=== PATIENT | female | born 1950 | race African-American/Black ===

== ENCOUNTER 2024-12-02 10:31 | Inpatient (IN) | payer OTHER, MEDICARE ==
[~2024-12-02] VITALS: Ht 160 cm; Wt 75.3 kg
[2024-12-02] MEDS: PIPERACILLIN/TAZO 3.375G/50ML 50 ML IV ONE (11:06)
[2024-12-02] MEDS: SODIUM CHLORIDE 0.9% (SEPSIS BOLUS) IV ONE (11:06)
[2024-12-02 11:27] LABS: BASOPHILS % 0.1 % (0.0-2.0); CARBON DIOXIDE 19 mEq/L (21-32); CHLORIDE 111 mEq/L (98-107); DIFFERENTIAL COMMENT 0; HEMATOCRIT. 59.7 % (36.0-48.0); HEMOGLOBIN. 18.1 g/dL (12.0-16.0); LYMPHOCYTES % 10.8 % (20.0-50.0); MEAN CORPUSCULAR HGB CONC 30.3 g/dL (31.0-37.0); MEAN PLATELET VOLUME 11.2 fl (7.4-10.4); MONOCYTES % 8.1 % (2.0-8.0); PLATELET 155 x1000/uL (130-400); POTASSIUM 4.2 mEq/L (3.5-5.1); RED BLOOD CELL COUNT 6.71 mill/uL (4.2-5.4); RED CELL DISTRIBUTION WIDTH 16.9 % (11.6-14.6); SODIUM 153 mEq/L (136-145); WHITE BLOOD COUNT 7.8 x1000/uL (4.5-11.0)
[2024-12-02 11:32] LABS: INR 1.1
[2024-12-02 11:33] LABS: CREATININE 2.7 mg/dL (0.6-1.0)
[2024-12-02 11:34] LABS: ALANINE AMINOTRANSFERASE 8 IU/L (10-49); TROPONIN I HIGH SENSITIVITY 34 ng/L (3.0-34)
[2024-12-02 11:35] LABS: ALBUMIN 4.1 g/dL (3.2-4.8); BILIRUBIN DIRECT 0.2 mg/dL (<=3.0); BILIRUBIN TOTAL 0.6 mg/dL (0.1-1.0); CREATINE KINASE 47 IU/L (34-145); PROTEIN TOTAL 7.2 g/dL (6.0-8.3)
[2024-12-02 11:47] LABS: ASPARTATE AMINOTRANSFERASE < 8 IU/L (<34)
[2024-12-02 11:48] LABS: GLUCOSE 861 mg/dL (70-105); UREA NITROGEN BLOOD 105 mg/dL (9-23)
[2024-12-02 11:49] LABS: LACTIC ACID 3.9 mmol/L (0.4-2.0)
[2024-12-02 12:42] LABS: BG BASE EXCESS -8.3 mmol/L (-2.0-3.0); BG CARBOXYHEMOGLOBIN 0.2 % (0.5-1.5); BG DEOXYHEMOGLOBIN 2.8 % (0.0-5.0); BG FRACTION INSPIRED OXYGEN 21; BG HCO3 ACT 16.9 mmol/L (21.0-28.0); BG METHEMOGLOBIN 0.1 % (0.5-1.5); BG OXYGEN SATURATION 97.2 % (94.0-98.0); BG OXYHEMOGLOBIN 96.9 % (94.0-98.0); BG PCO2 35.1 mmHg (32.0-45.0); BG PH 7.301 (7.350-7.450); BG PO2 101.1 mmHg (83.0-108.0); BG SAMPLE SITE RIGHT RADIAL; BG TOTAL HEMOGLOBIN 18.4 g/dL (12.0-16.0); BG VENT MODE ROOM AIR
[2024-12-02] MEDS ORDERED: BLOOD SUGAR DIAGNOSTIC STRIP TEST PRN (12:45)
[2024-12-02] MEDS ORDERED: DEXTROSE 50% WATER 50ML SYRINGE IV PRN (12:45)
[2024-12-02] MEDS ORDERED: MAGNESIUM 2 G PREMIX 50 ML IV PRN (12:45)
[2024-12-02] MEDS ORDERED: INSULIN REGULAR (DRIP) 100 UNITS in SODIUM CHLORIDE 0.9% 99 ML IV SCH (13:30)
[2024-12-02] MEDS: BLOOD SUGAR DIAGNOSTIC STRIP TEST SCH (13:40)
[2024-12-02] MEDS: VANCOMYCIN 1G PREMIX 200 ML IV NR (13:45)
[2024-12-02] MEDS: VANCOMYCIN 1G PREMIX 200 ML IV ONE (13:47)
[2024-12-02 14:29] LABS: CHLORIDE 120 mEq/L (98-107); POTASSIUM 3.5 mEq/L (3.5-5.1)
[2024-12-02] MEDS: INSULIN REGULAR 100U/100ML PMX 100 ML IV PRN (14:41)
[2024-12-02 14:43] LABS: CALCIUM 9.5 mg/dL (8.7-10.4); CARBON DIOXIDE 16 mEq/L (21-32)
[2024-12-02] MEDS: SODIUM CHLORIDE 0.9% 1,000 ML IV SCH (14:44)
[2024-12-02 14:48] LABS: CREATININE 2.2 mg/dL (0.6-1.0)
[2024-12-02 14:50] LABS: PHOSPHORUS 5.2 mg/dL (2.5-4.9)
[2024-12-02 14:51] LABS: UREA NITROGEN BLOOD 110 mg/dL (9-23)
[2024-12-02 14:55] LABS: GLUCOSE 795 mg/dL (70-105); SODIUM 158 mEq/L (136-145)
[2024-12-02 20:41] LABS: CHLORIDE 126 mEq/L (98-107)
[2024-12-02 20:42] LABS: CARBON DIOXIDE 23 mEq/L (21-32)
[2024-12-02 20:49] LABS: PHOSPHORUS 2.2 mg/dL (2.5-4.9)
[2024-12-02 20:55] LABS: SODIUM 165 mEq/L (136-145)
[2024-12-02 20:56] LABS: GLUCOSE 467 mg/dL (70-105); POTASSIUM 2.5 mEq/L (3.5-5.1)
[2024-12-02 20:57] LABS: UREA NITROGEN BLOOD 102 mg/dL (9-23)
[2024-12-02 21:17] LABS: CLARITY URINE CLEAR (CLEAR); COLOR URINE YELLOW (YELLOW); GLUCOSE URINE 3+ (NEGATIVE); KETONES URINE TRACE (NEGATIVE); LEUKOCYTE ESTERASE URINE NEGATIVE (NEGATIVE); NITRITE URINE NEGATIVE (NEGATIVE); OCCULT BLOOD URINE NEGATIVE (NEGATIVE); PROTEIN URINE NEGATIVE (NEGATIVE); SPECIFIC GRAVITY URINE 1.028 (1.005-1.030); UROBILINOGEN URINE 0.2 E.U./dL (0.2-1.0)
[2024-12-02] MEDS: SODIUM CHLORIDE 0.45% 1,000 ML IV SCH (21:30)
[2024-12-02] MEDS: KCL 20MEQ/100ML PREMIX 100 ML IV PRN (21:44)
[2024-12-02 22:08] LABS: BACTERIA URINE 1+; SQUAMOUS EPITHELIAL CELL URINE 1+ /lpf (RARE/1+)
[2024-12-02 22:09] LABS: RBC URINE 0-2 /hpf (0-2); WBC URINE 0-2 /hpf (0-2)
[2024-12-02] MEDS: DEXT 5%/0.45% NACL 1000ML 1,000 ML IV SCH (22:30)
[2024-12-02] MEDS: DEXT 5%/0.9% NACL 1,000 ML IV SCH (22:40)
[2024-12-02 22:57] LABS: BASOPHILS % 0.4 % (0.0-2.0); EOSINOPHILS % 0.1 % (0.0-5.0); HEMATOCRIT. 51.7 % (36.0-48.0); HEMOGLOBIN. 16.6 g/dL (12.0-16.0); LYMPHOCYTES % 12.3 % (20.0-50.0); MEAN CORPUSCULAR HEMOGLOBIN 27.5 pg (28.0-32.0); MEAN CORPUSCULAR HGB CONC 32.1 g/dL (31.0-37.0); MEAN CORPUSCULAR VOLUME 85.8 fL (81.0-99.0); MEAN PLATELET VOLUME 10.7 fl (7.4-10.4); MONOCYTES % 3.3 % (2.0-8.0); NEUTROPHILS % 83.9 % (40.0-76.0); PLATELET 134 x1000/uL (130-400); RED BLOOD CELL COUNT 6.02 mill/uL (4.2-5.4); WHITE BLOOD COUNT 9.1 x1000/uL (4.5-11.0)
[2024-12-03] VITALS (21 sets, daily range): BP systolic 127–161; BP diastolic 69–113; PULSE 64–85; RESP 16–27; TEMP 36.2–36.6; O2SAT 98–100
[2024-12-03 00:37] LABS: AMYLASE 125 IU/L (30-118); PHOSPHORUS 1.8 mg/dL (2.5-4.9)
[2024-12-03] MEDS: SODIUM PHOSPHATE 15 MMOL in SODIUM CHLORIDE 0.9% 245 ML IV PRN (01:37)
[2024-12-03] MEDS: DEXT 5%/0.45% NACL 1000ML 1,000 ML IV SCH (02:00)
[2024-12-03] MEDS ORDERED: ONDANSETRON HCL 4MG/2ML INJ IV PRN (02:00)
[2024-12-03 03:17] LABS: ALANINE AMINOTRANSFERASE 9 IU/L (10-49); CREATINE KINASE 131 IU/L (34-145); LACTATE DEHYDROGENASE 316 IU/L (120-246)
[2024-12-03 03:55] LABS: BG BASE EXCESS -5.7 mmol/L (-2.0-3.0); BG CARBOXYHEMOGLOBIN 0.7 % (0.5-1.5); BG DEOXYHEMOGLOBIN 3.5 % (0.0-5.0); BG FRACTION INSPIRED OXYGEN 21; BG HCO3 ACT 17.3 mmol/L (21.0-28.0); BG METHEMOGLOBIN 0.3 % (0.5-1.5); BG OXYGEN SATURATION 96.5 % (94.0-98.0); BG OXYHEMOGLOBIN 95.5 % (94.0-98.0); BG PCO2 28.2 mmHg (32.0-45.0); BG PH 7.405 (7.350-7.450); BG PO2 84.9 mmHg (83.0-108.0); BG SAMPLE SITE LEFT RADIAL; BG TOTAL HEMOGLOBIN 15.9 g/dL (12.0-16.0); BG VENT MODE ROOM AIR
[2024-12-03 05:09] LABS: POTASSIUM 1.4 mEq/L (3.5-5.1)
[2024-12-03] MEDS: POTASSIUM CHLORIDE 40 MEQ in SODIUM CHLORIDE 0.9% 230 ML IV PRN (05:36)
[2024-12-03] MEDS: DEXT 5%/0.45% NACL KCL 20MEQ/L 1,000 ML IV SCH (06:33)
[2024-12-03 07:00] LABS: HEMATOCRIT. 46.5 % (36.0-48.0); HEMOGLOBIN. 14.8 g/dL (12.0-16.0); MEAN CORPUSCULAR HEMOGLOBIN 27.1 pg (28.0-32.0); MEAN CORPUSCULAR HGB CONC 31.9 g/dL (31.0-37.0); MEAN PLATELET VOLUME 10.5 fl (7.4-10.4); PLATELET 101 x1000/uL (130-400); RED BLOOD CELL COUNT 5.46 mill/uL (4.2-5.4); RED CELL DISTRIBUTION WIDTH 14.7 % (11.6-14.6); WHITE BLOOD COUNT 13.3 x1000/uL (4.5-11.0)
[2024-12-03 07:19] LABS: DIFFERENTIAL COMMENT 1
[2024-12-03 07:20] LABS: CALCIUM 9.4 mg/dL (8.7-10.4); POTASSIUM 4.5 mEq/L (3.5-5.1)
[2024-12-03 07:25] LABS: CREATININE 1.4 mg/dL (0.6-1.0)
[2024-12-03 07:28] LABS: PHOSPHORUS 4.2 mg/dL (2.5-4.9)
[2024-12-03 07:59] LABS: PLATELET ESTIMATE SLIGHTLY DECREASED
[2024-12-03] MEDS ORDERED: VANCOMYCIN 500MG PREMIX 100 ML IV SCH (09:00)
[2024-12-03] MEDS: ASPIRIN 81MG TABLET PO SCH (09:38)
[2024-12-03] MEDS: LISINOPRIL 5MG TABLET PO SCH (09:38)
[2024-12-03] MEDS: POTASSIUM CHLORIDE 40 MEQ in SODIUM CHLORIDE 0.9% 230 ML IV ONE (09:38)
[2024-12-03] MEDS: PIPERACILLIN/TAZO 3.375G/50ML 50 ML IV SCH (09:38)
[2024-12-03] MEDS: FAMOTIDINE 20MG/2ML VIAL IV SCH (10:19)
[2024-12-03 10:40] LABS: CARBON DIOXIDE 18 mEq/L (21-32); CHLORIDE 127 mEq/L (98-107); POTASSIUM 5.1 mEq/L (3.5-5.1)
[2024-12-03 10:41] LABS: CALCIUM 9.1 mg/dL (8.7-10.4)
[2024-12-03 10:46] LABS: CREATININE 1.5 mg/dL (0.6-1.0); UREA NITROGEN BLOOD 70 mg/dL (9-23)
[2024-12-03 10:48] LABS: ALANINE AMINOTRANSFERASE 8 IU/L (10-49); ALBUMIN 2.9 g/dL (3.2-4.8); ASPARTATE AMINOTRANSFERASE 15 IU/L (<34); BILIRUBIN TOTAL 0.6 mg/dL (0.1-1.0); GLUCOSE 500 mg/dL (70-105); SODIUM 161 mEq/L (136-145)
[2024-12-03 10:49] LABS: PROTEIN TOTAL 5.2 g/dL (6.0-8.3)
[2024-12-03] MEDS: SODIUM CHLORIDE 0.45% 1,000 ML IV SCH (12:15)
[2024-12-03] MEDS ORDERED: BLOOD SUGAR DIAGNOSTIC STRIP TEST PRN (12:45)
[2024-12-03] MEDS ORDERED: MAGNESIUM 2 G PREMIX 50 ML IV PRN (12:45)
[2024-12-03] MEDS ORDERED: KCL 20MEQ/100ML PREMIX 100 ML IV PRN (12:45)
[2024-12-03] MEDS ORDERED: POTASSIUM CHLORIDE 40 MEQ in SODIUM CHLORIDE 0.9% 230 ML IV PRN (12:45)
[2024-12-03] MEDS ORDERED: DEXTROSE 50% WATER 50ML SYRINGE IV PRN ×2 (12:45→23:30)
[2024-12-03] MEDS ORDERED: SODIUM PHOSPHATE 15 MMOL in SODIUM CHLORIDE 0.9% 245 ML IV PRN (12:45)
[2024-12-03] MEDS: DEXT 5%/LACTATED RINGERS 1,000 ML IV SCH (12:45)
[2024-12-03 13:14] LABS: BG BASE EXCESS -6.7 mmol/L (-2.0-3.0); BG CARBOXYHEMOGLOBIN 0.8 % (0.5-1.5); BG DEOXYHEMOGLOBIN 2.7 % (0.0-5.0); BG FRACTION INSPIRED OXYGEN 24; BG METHEMOGLOBIN 0.3 % (0.5-1.5); BG OXYGEN SATURATION 97.3 % (94.0-98.0); BG OXYHEMOGLOBIN 96.2 % (94.0-98.0); BG PCO2 29.5 mmHg (32.0-45.0); BG PH 7.378 (7.350-7.450); BG PO2 93.7 mmHg (83.0-108.0); BG SAMPLE SITE RIGHT RADIAL; BG VENT MODE NASAL CANNULA
[2024-12-03] MEDS: BLOOD SUGAR DIAGNOSTIC STRIP TEST SCH (13:27)
[2024-12-03] MEDS: LACTATED RINGERS 1,000 ML IV SCH ×2 (13:32→20:15)
[2024-12-03] MEDS: INSULIN REGULAR 100U/100ML PMX 100 ML IV SCH (13:33)
[2024-12-03] MEDS: VANCOMYCIN 500MG/100ML IV NR (14:36)
[2024-12-03] MEDS: PIPERACILLIN/TAZO 3.375G/50ML IV SCH (14:36)
[2024-12-03 16:38] LABS: CARBON DIOXIDE 20 mEq/L (21-32); CHLORIDE 128 mEq/L (98-107); POTASSIUM 4.8 mEq/L (3.5-5.1)
[2024-12-03 16:39] LABS: CALCIUM 9.4 mg/dL (8.7-10.4)
[2024-12-03 16:43] LABS: CREATININE 1.4 mg/dL (0.6-1.0); GLUCOSE 368 mg/dL (70-105)
[2024-12-03 16:44] LABS: UREA NITROGEN BLOOD 65 mg/dL (9-23)
[2024-12-03 16:45] LABS: AMYLASE 70 IU/L (30-118)
[2024-12-03 16:46] LABS: PHOSPHORUS 2.2 mg/dL (2.5-4.9)
[2024-12-03 16:55] LABS: SODIUM 162 mEq/L (136-145)
[2024-12-03] MEDS ORDERED: BENAZEPRIL 5MG TABLET PO SCH (21:00)
[2024-12-03 22:36] LABS: CHLORIDE 130 mEq/L (98-107); POTASSIUM 4.5 mEq/L (3.5-5.1)
[2024-12-03 22:37] LABS: CALCIUM 9.7 mg/dL (8.7-10.4); CARBON DIOXIDE 22 mEq/L (21-32)
[2024-12-03 22:42] LABS: CREATININE 1.2 mg/dL (0.6-1.0); GLUCOSE 90 mg/dL (70-105); UREA NITROGEN BLOOD 51 mg/dL (9-23)
[2024-12-03 22:43] LABS: AMYLASE 86 IU/L (30-118)
[2024-12-03 22:44] LABS: PHOSPHORUS 2.4 mg/dL (2.5-4.9)
[2024-12-03 22:53] LABS: SODIUM 166 mEq/L (136-145)
[2024-12-03] MEDS ORDERED: SODIUM CHLORIDE 0.45% 1,000 ML IV SCH (23:15)
[2024-12-04] VITALS (82 sets, daily range): BP systolic 111–170; BP diastolic 53–148; PULSE 64–94; RESP 14–28; TEMP 36.1–36.8; O2SAT 86–100
[2024-12-04] MEDS: SODIUM CHLORIDE 0.45% 1,000 ML IV SCH (00:01)
[2024-12-04] MEDS: AMLODIPINE 5MG TABLET PO STA (00:30)
[2024-12-04 01:43] LABS: AMYLASE 94 IU/L (30-118)
[2024-12-04] MEDS: AMLODIPINE 5MG TABLET PO SCH (03:14)
[2024-12-04 05:25] LABS: BASOPHILS % 0.3 % (0.0-2.0); EOSINOPHILS % 0.7 % (0.0-5.0); HEMATOCRIT. 46.3 % (36.0-48.0); HEMOGLOBIN. 14.7 g/dL (12.0-16.0); LYMPHOCYTES % 9.6 % (20.0-50.0); MEAN CORPUSCULAR HEMOGLOBIN 26.5 pg (28.0-32.0); MEAN CORPUSCULAR HGB CONC 31.7 g/dL (31.0-37.0); MEAN CORPUSCULAR VOLUME 83.7 fL (81.0-99.0); MEAN PLATELET VOLUME 10.5 fl (7.4-10.4); MONOCYTES % 7.5 % (2.0-8.0); NEUTROPHILS % 81.9 % (40.0-76.0); PLATELET 69 x1000/uL (130-400); RED BLOOD CELL COUNT 5.53 mill/uL (4.2-5.4); WHITE BLOOD COUNT 11.6 x1000/uL (4.5-11.0)
[2024-12-04 05:38] LABS: CHLORIDE 125 mEq/L (98-107); POTASSIUM 4.9 mEq/L (3.5-5.1)
[2024-12-04 05:39] LABS: CALCIUM 10.1 mg/dL (8.7-10.4); CARBON DIOXIDE 24 mEq/L (21-32)
[2024-12-04 05:44] LABS: CREATININE 1.2 mg/dL (0.6-1.0); GLUCOSE 105 mg/dL (70-105); UREA NITROGEN BLOOD 55 mg/dL (9-23)
[2024-12-04 05:46] LABS: ALANINE AMINOTRANSFERASE 13 IU/L (10-49); ALBUMIN 3.5 g/dL (3.2-4.8); ASPARTATE AMINOTRANSFERASE 23 IU/L (<34); BILIRUBIN DIRECT 0.2 mg/dL (<=3.0); CREATINE KINASE 137 IU/L (34-145); PROTEIN TOTAL 5.6 g/dL (6.0-8.3)
[2024-12-04] MEDS: BLOOD SUGAR DIAGNOSTIC STRIP TEST SCH (05:46)
[2024-12-04 05:47] LABS: BILIRUBIN TOTAL 0.7 mg/dL (0.1-1.0); PHOSPHORUS 2.6 mg/dL (2.5-4.9)
[2024-12-04 05:52] LABS: T4 FREE 1.36 ng/dL (0.89-1.76)
[2024-12-04] MEDS: INSULIN LISPRO 100 UNITS/ML SUBCUT SCH (06:11)
[2024-12-04 07:39] LABS: SODIUM 164 mEq/L (136-145)
[2024-12-04 09:07] LABS: MYOGLOBIN SERUM 379 ng/mL (25-58)
[2024-12-04] MEDS: VANCOMYCIN 1.25GM PMX (XELLIA) 250 ML IV SCH (11:34)
[2024-12-05] VITALS (28 sets, daily range): BP systolic 72–181; BP diastolic 63–130; PULSE 67–136; RESP 15–23; TEMP 36.2–36.7; O2SAT 96–100
[2024-12-05 06:33] LABS: BASOPHILS % 0.2 % (0.0-2.0); EOSINOPHILS % 1.5 % (0.0-5.0); HEMATOCRIT. 41.6 % (36.0-48.0); LYMPHOCYTES % 13.7 % (20.0-50.0); MEAN CORPUSCULAR HEMOGLOBIN 27.2 pg (28.0-32.0); MEAN CORPUSCULAR HGB CONC 31.3 g/dL (31.0-37.0); MEAN CORPUSCULAR VOLUME 86.8 fL (81.0-99.0); MEAN PLATELET VOLUME 10.3 fl (7.4-10.4); MONOCYTES % 9.9 % (2.0-8.0); NEUTROPHILS % 74.7 % (40.0-76.0); PLATELET 58 x1000/uL (130-400); RED CELL DISTRIBUTION WIDTH 15.3 % (11.6-14.6); WHITE BLOOD COUNT 9.4 x1000/uL (4.5-11.0)
[2024-12-05 06:44] LABS: CARBON DIOXIDE 21 mEq/L (21-32); CHLORIDE 115 mEq/L (98-107); POTASSIUM 4.3 mEq/L (3.5-5.1)
[2024-12-05 06:45] LABS: CALCIUM 9.7 mg/dL (8.7-10.4)
[2024-12-05 06:50] LABS: CREATININE 1.1 mg/dL (0.6-1.0); GLUCOSE 362 mg/dL (70-105); UREA NITROGEN BLOOD 31 mg/dL (9-23)
[2024-12-05 06:53] LABS: PHOSPHORUS 2.3 mg/dL (2.5-4.9)
[2024-12-05 08:34] LABS: SODIUM 148 mEq/L (136-145)
[2024-12-05] MEDS: POTASSIUM PHOSPHATE 20 MMOL in DEXT 5% WATER 243.3333 ML IV NR (11:39)
[2024-12-05] MEDS: INSULIN LISPRO 100 UNITS/ML SUBCUT SCH (14:13)
[2024-12-05] MEDS ORDERED: HYDRALAZINE 20MG/ML VIAL IV PRN (15:45)
[2024-12-05] MEDS ORDERED: CLONIDINE 0.1MG TABLET PO PRN (15:45)
[2024-12-05] MEDS: METFORMIN HCL 500MG TABLET PO SCH (18:18)
[2024-12-08 14:11] LABS: MYOGLOBIN URINE 3 ng/mL (0-13)
== END 2024-12-05 21:20 | disposition short-term general hospital (02) | DRG 637 ==
LOC: ER 10:31 → MICUSO 12:45 → EDBEDREQ 12:52 → EDBEDREQTM 12:52 → EDBEDREQSVC 12:52 → MICUNO 12-03 11:36 → 6WST 12-05 11:15
PROVIDERS: ADMIT Internal Medicine; ATTEND Internal Medicine
PROC: 02HV33Z Insertion of Infusion Device into Superior Vena Cava, Percutaneous Approach (ICD-10-PCS; principal; 2024-12-03)
PROC: B548ZZA Ultrasonography of Superior Vena Cava, Guidance (ICD-10-PCS; 2024-12-03)
DX: E11.10 Type 2 diabetes mellitus with ketoacidosis without coma (principal); G93.41 Metabolic encephalopathy; J18.9 Pneumonia, unspecified organism; J96.01 Acute respiratory failure with hypoxia; N17.9 Acute kidney failure, unspecified; E87.0 Hyperosmolality and hypernatremia; I10 Essential (primary) hypertension; E87.6 Hypokalemia; E27.8 Other specified disorders of adrenal gland; D25.9 Leiomyoma of uterus, unspecified; D75.1 Secondary polycythemia; E78.00 Pure hypercholesterolemia, unspecified; E83.39 Other disorders of phosphorus metabolism; Z85.038 Personal history of other malignant neoplasm of large intestine; Z82.49 Family history of ischemic heart disease and other diseases of the circulatory system; Z83.3 Family history of diabetes mellitus
CPT/HCPCS: 36415; 36600; 71045; 74176; 76700; 80048; 80051; 80053; 80076; 80202; 81003; 82010; 82150; 82375; 82550; 82805; 82962; 83036; 83520; 83605; 83615; 83735; 83930; 84100; 84132; 84145; 84439; 84443; 84460; 84484; 85025; 93005; 93970; 99291; A4606; A6261; C1893; J1815; J2543; J3370; J3480; J3490; J7030; J7042; J7050; J7060; J7120; J7121

== ENCOUNTER 2025-01-06 07:53 | Emergency (ER) | payer MEDICARE, OTHER ==
[~2025-01-06] VITALS: Ht 162.6 cm; Wt 61.0 kg
[2025-01-06 07:55] VITALS: O2SAT 99
[2025-01-06] MEDS: ONDANSETRON HCL 4MG/2ML INJ IV STA (08:55)
[2025-01-06] MEDS: MORPHINE SULFATE 4 MG/ML INJ (FOR IV/IM USE) IV STA (08:56)
[2025-01-06] MEDS: SODIUM CHLORIDE 0.9% 1,000 ML IV ONE (08:56)
[2025-01-06 08:59] LABS: HEMATOCRIT. 39.3 % (36.0-48.0); HEMOGLOBIN. 12.9 g/dL (12.0-16.0); MEAN CORPUSCULAR HEMOGLOBIN 26.1 pg (28.0-32.0); MEAN CORPUSCULAR HGB CONC 32.9 g/dL (31.0-37.0); MEAN CORPUSCULAR VOLUME 79.3 fL (81.0-99.0); PLATELET 311 x1000/uL (130-400); RED BLOOD CELL COUNT 4.96 mill/uL (4.2-5.4); RED CELL DISTRIBUTION WIDTH 14.7 % (11.6-14.6); WHITE BLOOD COUNT 7.5 x1000/uL (4.5-11.0)
[2025-01-06 09:09] LABS: CHLORIDE 92 mEq/L (98-107); SODIUM 134 mEq/L (136-145)
[2025-01-06 09:10] LABS: CALCIUM 10.5 mg/dL (8.7-10.4); CARBON DIOXIDE 27 mEq/L (21-32); DIFFERENTIAL COMMENT 1
[2025-01-06 09:15] LABS: CREATININE 0.8 mg/dL (0.6-1.0); GLUCOSE 362 mg/dL (70-105); TROPONIN I HIGH SENSITIVITY 5 ng/L (3.0-34); UREA NITROGEN BLOOD 11 mg/dL (9-23)
[2025-01-06 09:17] LABS: ALANINE AMINOTRANSFERASE 16 IU/L (10-49); ALBUMIN 4.9 g/dL (3.2-4.8); ASPARTATE AMINOTRANSFERASE 25 IU/L (<34); BILIRUBIN DIRECT 0.1 mg/dL (<=3.0); BILIRUBIN TOTAL 0.5 mg/dL (0.1-1.0); PROTEIN TOTAL 8.1 g/dL (6.0-8.3)
[2025-01-06 11:44] LABS: INR 1.1; PROTHROMBIN TIME 11.4 sec (9.6-11.0)
[2025-01-06] MEDS: KETOROLAC 15MG/ML VIAL IV ONE (11:59)
[2025-01-06] MEDS: HYDRALAZINE 20MG/ML VIAL IV ONE (11:59)
[2025-01-06 13:09] LABS: PLATELET ESTIMATE NORMAL
[2025-01-06] MEDS ORDERED: HYDROCODONE/ACETAMINOPHEN 5/325MG TABLET PO PRN (13:45)
[2025-01-06] MEDS ORDERED: DEXTROSE 50% WATER 50ML SYRINGE IV PRN (13:45)
[2025-01-06] MEDS: INSULIN GLARGINE 100 UNITS/ML SUBCUT NR (14:49)
[2025-01-06 15:20] VITALS: BP 161/80; PULSE 97; RESP 19; TEMP 37; O2SAT 98
[2025-01-06] MEDS: NIFEDIPINE XL 30MG TAB PO SCH (15:29)
[2025-01-06] MEDS ORDERED: BLOOD SUGAR DIAGNOSTIC STRIP TEST SCH (17:00)
[2025-01-06] MEDS ORDERED: METOCLOPRAMIDE HCL 10MG/2ML VIAL IV SCH (18:00)
[2025-01-06] MEDS ORDERED: INSULIN LISPRO 100 UNITS/ML SUBCUT SCH (18:20)
[2025-01-06] MEDS ORDERED: FAMOTIDINE 20MG TABLET PO SCH (21:00)
[2025-01-06] MEDS ORDERED: INSULIN GLARGINE 100 UNITS/ML SUBCUT SCH (22:00)
== END 2025-01-06 15:44 | disposition short-term general hospital (02) ==
LOC: ER 08:06
DX: R10.9 Unspecified abdominal pain (principal); E11.9 Type 2 diabetes mellitus without complications; E78.00 Pure hypercholesterolemia, unspecified; I10 Essential (primary) hypertension; Z85.038 Personal history of other malignant neoplasm of large intestine
CPT/HCPCS: 99291; 74176; 96374; 96375; 96361; 80076; 80048; 82962; 83690; 85025; 85610; 84484; 36415; 93005; 96372; J1885; J0360; J2405; J2270; J7030; J1815; A4606